=== PATIENT | male | born 1945 | race Caucasian/White ===

== ENCOUNTER 2017-12-03 08:28 | Observation (INO) | payer MEDICARE, SELFPAY ==
[~2017-12-03] VITALS: Ht 182.9 cm; Wt 108.0 kg
[~2017-12-03 08:28] MED LIST: ACET500; AMLO5; AMLO5 PO; BETA.05TC TP; CALCIUM 600 +1 EA11 PO; Depo-Testos200 MG/ML IM; ESOM20; GLIM2 PO; HYDSUL200; HYDSUL200 PO; METF500 PO; METH5 PO; MISO200; NAPR500; NAPR500 PO; ONE DAILY COMP1 EACH PO; PRED5; PRED5 PO; PREDNISONE PO; PSYL5.85P PO; Prilosec Otc20 MG PO; SERT50; SERT50 PO; TESTOSTERONE; TRAM50; TRAZ100; TRAZ50 PO; VITAMIN C500 MG PO; [UNRECOGNIZED DRUG - OTHER]
[2017-12-03] MEDS ORDERED: FURO40 PO (08:59)
[2017-12-03 09:37] LABS: BASOPHILS ABSOLUTE AUTO 0.02 K/mm3 (0.00-0.23); BASOPHILS PERCENT AUTO 0 % (0-2); EOSINOPHILS ABSOLUTE AUTO 0.14 K/mm3 (0.00-0.68); EOSINOPHILS PERCENT AUTO 2 % (0-6); Hematocrit 30.5 % (37.0-53.0); Hemoglobin 9.3 g/dL (13.5-17.5); IMMATURE GRAN ABSOLUTE AUTO 0.02 K/mm3 (0.00-0.10); IMMATURE GRAN PERCENT AUTO 0 % (0-1); LYMPHOCYTES ABSOLUTE AUTO 1.05 K/mm3 (0.84-5.20); LYMPHOCYTES PERCENT AUTO 15 % (21-46); MONOCYTES ABSOLUTE AUTO 0.74 K/mm3 (0.16-1.47); MONOCYTES PERCENT AUTO 10 % (4-13); Mean Corpuscular HGB 25.2 pg (26.0-34.0); Mean Corpuscular HGB Conc 30.5 g/dL (31.5-36.5); Mean Corpuscular Volume 83 fL (80-100); Mean Platelet Volume 12.6 fL (9.1-12.4); NEUTROPHILS ABSOLUTE AUTO 5.27 K/mm3 (1.96-9.15); NEUTROPHILS PERCENT AUTO 73 % (41-73); Platelet Count 119 K/mm3 (150-400); RDW Coefficient Variation 14.3 % (11.7-14.2); RDW Standard Deviation 42.4 fL (35.1-46.3); Red Blood Cell Count 3.69 M/mm3 (4.30-5.90); White Blood Cell Count 7.24 K/mm3 (4.00-11.30)
[2017-12-03 10:10] LABS: Alanine Aminotransfer (ALT/SGP 30 U/L (12-78); Albumin, Blood 2.8 g/dL (3.4-5.0); Albumin/Globulin Ratio 0.6 (0.8-1.8); Alk Phos 101 U/L (50-136); Anion Gap 7 mmol/L (6-16); Aspartate Aminotrans (AST/SGOT 44 U/L (12-37); Bilirubin, Total 0.6 mg/dL (0.1-1.0); Blood Urea Nitrogen 31 mg/dL (8-24); Bun/Creatinine Ratio 31.2 (12.0-20.0); CO2, Blood 22 mmol/L (21-32); Calcium, Blood 8.2 mg/dL (8.5-10.1); Chloride, Blood 109 mmol/L (98-108); Creatinine, Blood 0.99 mg/dL (0.60-1.20); Globulin, Blood 4.7 g/dL (2.2-4.0); Glomerular Filtration Rate >60 (60-); Glucose, Blood 117 mg/dL (70-99); Potassium, Blood 4.6 mmol/L (3.5-5.5); Sodium, Blood 138 mmol/L (136-145); Total Protein, Blood 7.5 g/dL (6.4-8.2); Troponin I 0.213 ng/mL (0.000-0.040)
[2017-12-03 16:29] LABS: Creatine Kinase MB 4.2 ng/mL (0.0-3.6); Creatine Kinase MB Index 6.1 (0.0-4.0); Troponin I 0.262 ng/mL (0.000-0.040)
[2017-12-03 22:14] LABS: Creatine Kinase MB Index 4.9 (0.0-4.0); Troponin I 0.234 ng/mL (0.000-0.040)
[2017-12-04 06:16] LABS: BASOPHILS ABSOLUTE AUTO 0.04 K/mm3 (0.00-0.23); BASOPHILS PERCENT AUTO 1 % (0-2); EOSINOPHILS ABSOLUTE AUTO 0.13 K/mm3 (0.00-0.68); EOSINOPHILS PERCENT AUTO 2 % (0-6); Hematocrit 31.2 % (37.0-53.0); Hemoglobin 9.5 g/dL (13.5-17.5); IMMATURE GRAN ABSOLUTE AUTO 0.02 K/mm3 (0.00-0.10); IMMATURE GRAN PERCENT AUTO 0 % (0-1); LYMPHOCYTES PERCENT AUTO 24 % (21-46); MONOCYTES ABSOLUTE AUTO 0.69 K/mm3 (0.16-1.47); MONOCYTES PERCENT AUTO 11 % (4-13); Mean Corpuscular HGB 24.9 pg (26.0-34.0); Mean Corpuscular HGB Conc 30.4 g/dL (31.5-36.5); Mean Corpuscular Volume 82 fL (80-100); Mean Platelet Volume 12.4 fL (9.1-12.4); NEUTROPHILS ABSOLUTE AUTO 4.12 K/mm3 (1.96-9.15); NEUTROPHILS PERCENT AUTO 62 % (41-73); Platelet Count 125 K/mm3 (150-400); RDW Coefficient Variation 14.4 % (11.7-14.2); RDW Standard Deviation 42.3 fL (35.1-46.3); Red Blood Cell Count 3.82 M/mm3 (4.30-5.90)
[2017-12-04 06:30] LABS: Alanine Aminotransfer (ALT/SGP 27 U/L (12-78); Albumin, Blood 2.8 g/dL (3.4-5.0); Albumin/Globulin Ratio 0.6 (0.8-1.8); Alk Phos 98 U/L (50-136); Anion Gap 10 mmol/L (6-16); Aspartate Aminotrans (AST/SGOT 43 U/L (12-37); Bilirubin, Total 0.9 mg/dL (0.1-1.0); Blood Urea Nitrogen 28 mg/dL (8-24); Bun/Creatinine Ratio 27.2 (12.0-20.0); CO2, Blood 26 mmol/L (21-32); Calcium, Blood 8.2 mg/dL (8.5-10.1); Chloride, Blood 104 mmol/L (98-108); Creatinine, Blood 1.03 mg/dL (0.60-1.20); Globulin, Blood 4.7 g/dL (2.2-4.0); Glomerular Filtration Rate >60 (60-); Glucose, Blood 121 mg/dL (70-99); Magnesium, Blood 1.9 mg/dL (1.6-2.4); Phosphorus, Blood 3.4 mg/dL (2.5-4.9); Potassium, Blood 4.2 mmol/L (3.5-5.5); Sodium, Blood 140 mmol/L (136-145); Total Protein, Blood 7.5 g/dL (6.4-8.2)
[2017-12-04] MEDS ORDERED: FURO40 PO (10:56)
[2017-12-04] MEDS ORDERED: METH5 PO (10:58)
[2017-12-04] MEDS ORDERED: Micro-K10 MEQ PO (11:01)
[2018-01-07] MEDS ORDERED: ACET500 PO (14:46)
[2018-01-07] MEDS ORDERED: ACYC800 PO (14:46)
[2018-01-07] MEDS ORDERED: BETA.05TCA TOP (14:48)
[2018-01-07] MEDS ORDERED: MONT10T PO (14:49)
[2018-01-07] MEDS ORDERED: Alavert D-12 A1 EACH PO (14:49)
[2018-01-07] MEDS ORDERED: METO50ER PO (14:49)
[2018-01-07] MEDS ORDERED: SPIR25 PO (14:50)
== END 2017-12-04 13:57 | disposition home or self-care (01) ==
LOC: ER 08:28 → MEDS 08:29 → ENPENDDIS 12-04 10:00 → MEDS 12-04 13:57
PROVIDERS: Emergency Medicine; Hospitalist
DX: R07.89 Other chest pain (principal); I11.0 Hypertensive heart disease with heart failure; I50.9 Heart failure, unspecified; E11.40 Type 2 diabetes mellitus with diabetic neuropathy, unspecified; C22.8 Malignant neoplasm of liver, primary, unspecified as to type; J18.9 Pneumonia, unspecified organism; I24.9 Acute ischemic heart disease, unspecified; K21.9 Gastro-esophageal reflux disease without esophagitis; Z88.0 Allergy status to penicillin; Z88.8 Allergy status to other drugs, medicaments and biological substances; Z79.899 Other long term (current) drug therapy; Z79.84 Long term (current) use of oral hypoglycemic drugs; Z98.890 Other specified postprocedural states
CPT/HCPCS: 36415; 71046; 71260; 74177; 80053; 82550; 82553; 82947; 83735; 83880; 84100; 84484; 85025; 85651; 86140; 93005; 93010; 96374; 99285; C8929; G0378; J3010; Q9957; Q9967

== ENCOUNTER → 2018-02-04 | Outpatient (CLI) | payer MEDICARE, SELFPAY ==
[~2018-02-04] MED LIST changes: +ACET500 PO; +ACYC800 PO; +Alavert D-12 A1 EACH PO; +BETA.05TCA TOP; +FURO40 PO; +METO50ER PO; +MONT10T PO; +Micro-K10 MEQ PO; +SPIR25 PO
== END | disposition home or self-care (01) ==
LOC: LAB SHORT 15:14 → LAB 15:14
DX: M86.171 Other acute osteomyelitis, right ankle and foot (principal)
CPT/HCPCS: 87070; 87075; 87147; 87205

== ENCOUNTER → 2018-02-23 | Outpatient (CLI) | payer MEDICARE, SELFPAY ==
[2018-02-23 14:28] LABS: Protein, Urine Quantitative 5.5 mg/dL (0.0-11.9)
== END | disposition home or self-care (01) ==
LOC: LAB 12:12
PROVIDERS: Internal Medicine Nephrology
DX: R79.89 Other specified abnormal findings of blood chemistry (principal)
CPT/HCPCS: 84156

== ENCOUNTER 2018-09-27 15:42 | Emergency (ER) | payer MEDICARE, SELFPAY ==
[~2018-09-27] VITALS: Ht 182.9 cm; Wt 107.0 kg
[~2018-09-27 15:42] MED LIST changes: -SPIR25 PO
[2018-09-27 16:41] LABS: BASOPHILS ABSOLUTE AUTO 0.03 K/mm3 (0.00-0.23); BASOPHILS PERCENT AUTO 1 % (0-2); EOSINOPHILS ABSOLUTE AUTO 0.06 K/mm3 (0.00-0.68); EOSINOPHILS PERCENT AUTO 2 % (0-6); Hematocrit 30.8 % (37.0-53.0); Hemoglobin 9.2 g/dL (13.5-17.5); IMMATURE GRAN PERCENT AUTO 0 % (0-1); LYMPHOCYTES ABSOLUTE AUTO 1.31 K/mm3 (0.84-5.20); LYMPHOCYTES PERCENT AUTO 32 % (21-46); MONOCYTES ABSOLUTE AUTO 0.35 K/mm3 (0.16-1.47); MONOCYTES PERCENT AUTO 9 % (4-13); Mean Corpuscular HGB 23.2 pg (26.0-34.0); Mean Corpuscular HGB Conc 29.9 g/dL (31.5-36.5); Mean Corpuscular Volume 78 fL (80-100); NEUTROPHILS ABSOLUTE AUTO 2.38 K/mm3 (1.96-9.15); NEUTROPHILS PERCENT AUTO 58 % (41-73); Platelet Count 74 K/mm3 (150-400); RDW Coefficient Variation 17.2 % (11.7-14.2); RDW Standard Deviation 49.1 fL (35.1-46.3); Red Blood Cell Count 3.96 M/mm3 (4.30-5.90); White Blood Cell Count 4.13 K/mm3 (4.00-11.30)
[2018-09-27 17:05] LABS: Alanine Aminotransfer (ALT/SGP 35 U/L (12-78); Albumin, Blood 3.1 g/dL (3.4-5.0); Albumin/Globulin Ratio 0.7 (0.8-1.8); Alk Phos 94 U/L (50-136); Anion Gap 7 mmol/L (6-16); Aspartate Aminotrans (AST/SGOT 46 U/L (12-37); Bilirubin, Total 0.8 mg/dL (0.1-1.0); Blood Urea Nitrogen 20 mg/dL (8-24); Bun/Creatinine Ratio 23.7 (12.0-20.0); CO2, Blood 25 mmol/L (21-32); Calcium, Blood 8.3 mg/dL (8.5-10.1); Chloride, Blood 105 mmol/L (98-108); Creatinine, Blood 0.84 mg/dL (0.60-1.20); Globulin, Blood 4.4 g/dL (2.2-4.0); Glomerular Filtration Rate >60 (60-); Glucose, Blood 185 mg/dL (70-99); Potassium, Blood 4.1 mmol/L (3.5-5.5); Sodium, Blood 137 mmol/L (136-145); Total Protein, Blood 7.5 g/dL (6.4-8.2); Troponin I 0.019 ng/mL (0.000-0.040)
[2018-09-27] MEDS ORDERED: LACT10SY PO (18:52)
[2018-09-27] MEDS ORDERED: TRAZ50 PO (18:53)
[2018-09-27] MEDS ORDERED: Nitrostat0.4 MG SL (19:47)
== END 2018-09-27 20:06 | disposition left against medical advice (07) ==
LOC: ER 15:42
PROVIDERS: Physician Assistant
DX: R07.9 Chest pain, unspecified (principal); Z88.0 Allergy status to penicillin; Z88.8 Allergy status to other drugs, medicaments and biological substances; Z88.1 Allergy status to other antibiotic agents; Z79.899 Other long term (current) drug therapy; Z79.891 Long term (current) use of opiate analgesic; E11.40 Type 2 diabetes mellitus with diabetic neuropathy, unspecified; I11.0 Hypertensive heart disease with heart failure; I50.9 Heart failure, unspecified; K21.9 Gastro-esophageal reflux disease without esophagitis; Z87.891 Personal history of nicotine dependence
CPT/HCPCS: 36415; 71046; 80053; 84484; 85025; 93005; 93010; 99285-25

== ENCOUNTER 2018-11-20 15:27 | Emergency (ER) | payer MEDICARE, OTHER ==
[~2018-11-20] VITALS: Ht 182.9 cm; Wt 108.0 kg
[~2018-11-20 15:27] MED LIST changes: +LACT10SY PO; +Nitrostat0.4 MG SL
[2018-11-20 16:34] LABS: BASOPHILS ABSOLUTE AUTO 0.04 K/mm3 (0.00-0.23); BASOPHILS PERCENT AUTO 1 % (0-2); EOSINOPHILS ABSOLUTE AUTO 0.08 K/mm3 (0.00-0.68); EOSINOPHILS PERCENT AUTO 2 % (0-6); Hematocrit 31.5 % (37.0-53.0); Hemoglobin 8.9 g/dL (13.5-17.5); IMMATURE GRAN ABSOLUTE AUTO 0.02 K/mm3 (0.00-0.10); IMMATURE GRAN PERCENT AUTO 0 % (0-1); LYMPHOCYTES ABSOLUTE AUTO 1.75 K/mm3 (0.84-5.20); LYMPHOCYTES PERCENT AUTO 35 % (21-46); MONOCYTES ABSOLUTE AUTO 0.45 K/mm3 (0.16-1.47); MONOCYTES PERCENT AUTO 9 % (4-13); Mean Corpuscular HGB 23.7 pg (26.0-34.0); Mean Corpuscular HGB Conc 28.3 g/dL (31.5-36.5); Mean Corpuscular Volume 84 fL (80-100); NEUTROPHILS ABSOLUTE AUTO 2.65 K/mm3 (1.96-9.15); NEUTROPHILS PERCENT AUTO 53 % (41-73); Platelet Count 99 K/mm3 (150-400); RDW Coefficient Variation 19.1 % (11.7-14.2); RDW Standard Deviation 57.1 fL (35.1-46.3); Red Blood Cell Count 3.75 M/mm3 (4.30-5.90); White Blood Cell Count 4.99 K/mm3 (4.00-11.30)
[2018-11-20 16:48] LABS: Alanine Aminotransfer (ALT/SGP 40 U/L (12-78); Albumin/Globulin Ratio 0.7 (0.8-1.8); Alk Phos 86 U/L (50-136); Anion Gap 11 mmol/L (6-16); Aspartate Aminotrans (AST/SGOT 57 U/L (12-37); Bilirubin, Total 1.2 mg/dL (0.1-1.0); Blood Urea Nitrogen 25 mg/dL (8-24); Bun/Creatinine Ratio 26.1 (12.0-20.0); CO2, Blood 20 mmol/L (21-32); Calcium, Blood 8.4 mg/dL (8.5-10.1); Chloride, Blood 110 mmol/L (98-108); Creatinine, Blood 0.96 mg/dL (0.60-1.20); Globulin, Blood 4.2 g/dL (2.2-4.0); Glomerular Filtration Rate >60 (60-); Glucose, Blood 176 mg/dL (70-99); Potassium, Blood 4.4 mmol/L (3.5-5.5); Sodium, Blood 141 mmol/L (136-145); Total Protein, Blood 7.2 g/dL (6.4-8.2)
[2018-11-20] MEDS ORDERED: Metformin HCl500 MG PO (16:57)
[2018-11-20] MEDS ORDERED: EPLE25 (16:59)
[2018-11-20 17:04] LABS: International Normalized Ratio 1.16; Prothrombin Time Results 12.1 Sec (9.7-11.5)
[2018-11-20 17:15] LABS: Troponin I 0.578 ng/mL (0.000-0.040)
[2018-11-20] MEDS ORDERED: FURO80 PO (18:19)
[2018-11-20] MEDS ORDERED: OXYC10TA19 (18:24)
[2018-11-20] MEDS ORDERED: **INCOMPLETE MED REC (18:25)
[2018-11-20] MEDS ORDERED: ROSU5 PO (18:37)
[2018-11-20] MEDS ORDERED: SPIR25 PO (18:38)
[2018-11-20] MEDS ORDERED: METO2.5 PO (18:46)
[2018-11-20] MEDS ORDERED: AZIT250 PO (18:55)
[2018-11-20] MEDS ORDERED: Efudex40 GM TOP (18:56)
[2018-11-20] MEDS ORDERED: Toprol Xl25 MG PO (19:12)
[2018-11-20] MEDS ORDERED: Isosorbide Mono30 MG PO (19:12)
== END 2018-11-20 19:52 | disposition home or self-care (01) ==
LOC: ER 15:27
PROVIDERS: Emergency Medicine
DX: I21.4 Non-ST elevation (NSTEMI) myocardial infarction (principal); R06.00 Dyspnea, unspecified; R18.8 Other ascites; J90 Pleural effusion, not elsewhere classified; Z88.0 Allergy status to penicillin; Z88.8 Allergy status to other drugs, medicaments and biological substances; Z88.1 Allergy status to other antibiotic agents; Z79.899 Other long term (current) drug therapy; Z79.84 Long term (current) use of oral hypoglycemic drugs; I11.0 Hypertensive heart disease with heart failure; I50.9 Heart failure, unspecified; K21.9 Gastro-esophageal reflux disease without esophagitis; Z87.891 Personal history of nicotine dependence
CPT/HCPCS: 36415; 71046; 76705; 80053; 83880; 84484; 85025; 85610; 93005; 93010; 99285-25

== ENCOUNTER 2018-12-06 15:08 | Inpatient (IN) | payer MEDICARE, OTHER ==
[~2018-12-06] VITALS: Ht 182.9 cm; Wt 101.1 kg
[~2018-12-06 15:08] MED LIST changes: +**INCOMPLETE MED REC; +AZIT250 PO; +EPLE25; +Efudex40 GM TOP; +FURO80 PO; +Isosorbide Mono30 MG PO; +METO2.5 PO; +Metformin HCl500 MG PO; +OXYC10TA19; +ROSU5 PO; +SPIR25 PO; +Toprol Xl25 MG PO
[2018-12-06 17:15] LABS: BASOPHILS ABSOLUTE AUTO 0.06 K/mm3 (0.00-0.23); BASOPHILS PERCENT AUTO 1 % (0-2); EOSINOPHILS ABSOLUTE AUTO 0.16 K/mm3 (0.00-0.68); EOSINOPHILS PERCENT AUTO 3 % (0-6); Hemoglobin 8.3 g/dL (13.5-17.5); IMMATURE GRAN ABSOLUTE AUTO 0.01 K/mm3 (0.00-0.10); IMMATURE GRAN PERCENT AUTO 0 % (0-1); LYMPHOCYTES ABSOLUTE AUTO 1.75 K/mm3 (0.84-5.20); LYMPHOCYTES PERCENT AUTO 27 % (21-46); MONOCYTES ABSOLUTE AUTO 0.76 K/mm3 (0.16-1.47); MONOCYTES PERCENT AUTO 12 % (4-13); Mean Corpuscular HGB 23.4 pg (26.0-34.0); Mean Corpuscular HGB Conc 29.6 g/dL (31.5-36.5); Mean Corpuscular Volume 79 fL (80-100); NEUTROPHILS ABSOLUTE AUTO 3.79 K/mm3 (1.96-9.15); NEUTROPHILS PERCENT AUTO 58 % (41-73); Platelet Count 89 K/mm3 (150-400); RDW Coefficient Variation 18.6 % (11.7-14.2); RDW Standard Deviation 52.3 fL (35.1-46.3); Red Blood Cell Count 3.55 M/mm3 (4.30-5.90); White Blood Cell Count 6.53 K/mm3 (4.00-11.30)
[2018-12-06 17:30] LABS: Albumin, Blood 3.2 g/dL (3.4-5.0); Albumin/Globulin Ratio 0.7 (0.8-1.8); Bilirubin, Total 1.3 mg/dL (0.1-1.0); Bun/Creatinine Ratio 39.4 (12.0-20.0); Calcium, Blood 8.5 mg/dL (8.5-10.1); Creatinine, Blood 1.88 mg/dL (0.60-1.20); Globulin, Blood 4.3 g/dL (2.2-4.0); Potassium, Blood 4.8 mmol/L (3.5-5.5); Total Protein, Blood 7.5 g/dL (6.4-8.2)
[2018-12-06] MEDS ORDERED: ACET500 PO (20:16)
[2018-12-06] MEDS ORDERED: LACT10SY PO (20:17)
[2018-12-06] MEDS ORDERED: TRAZ50 PO (20:18)
[2018-12-06] MEDS ORDERED: EPLE25 PO (21:37)
[2018-12-06] MEDS ORDERED: BUME2 PO (21:37)
[2018-12-06] MEDS ORDERED: METO2.5 PO (21:38)
[2018-12-06] MEDS ORDERED: Midodrine HCl2.5 MG PO (21:38)
[2018-12-07 05:42] LABS: BASOPHILS ABSOLUTE AUTO 0.04 K/mm3 (0.00-0.23); BASOPHILS PERCENT AUTO 1 % (0-2); EOSINOPHILS ABSOLUTE AUTO 0.27 K/mm3 (0.00-0.68); EOSINOPHILS PERCENT AUTO 4 % (0-6); Hematocrit 27.3 % (37.0-53.0); Hemoglobin 8.1 g/dL (13.5-17.5); IMMATURE GRAN ABSOLUTE AUTO 0.01 K/mm3 (0.00-0.10); IMMATURE GRAN PERCENT AUTO 0 % (0-1); LYMPHOCYTES ABSOLUTE AUTO 2.59 K/mm3 (0.84-5.20); LYMPHOCYTES PERCENT AUTO 34 % (21-46); MONOCYTES ABSOLUTE AUTO 0.81 K/mm3 (0.16-1.47); MONOCYTES PERCENT AUTO 11 % (4-13); Mean Corpuscular HGB 22.8 pg (26.0-34.0); Mean Corpuscular HGB Conc 29.7 g/dL (31.5-36.5); Mean Corpuscular Volume 77 fL (80-100); NEUTROPHILS ABSOLUTE AUTO 3.86 K/mm3 (1.96-9.15); NEUTROPHILS PERCENT AUTO 51 % (41-73); Platelet Count 94 K/mm3 (150-400); RDW Coefficient Variation 18.6 % (11.7-14.2); RDW Standard Deviation 51.4 fL (35.1-46.3); Red Blood Cell Count 3.55 M/mm3 (4.30-5.90); White Blood Cell Count 7.58 K/mm3 (4.00-11.30)
[2018-12-07 06:28] LABS: Albumin, Blood 3.2 g/dL (3.4-5.0); Anion Gap 11 mmol/L (6-16); Blood Urea Nitrogen 72 mg/dL (8-24); Bun/Creatinine Ratio 37.9 (12.0-20.0); CO2, Blood 19 mmol/L (21-32); Calcium, Blood 8.4 mg/dL (8.5-10.1); Chloride, Blood 109 mmol/L (98-108); Glomerular Filtration Rate 37 (60-); Glucose, Blood 130 mg/dL (70-99); Magnesium, Blood 2.6 mg/dL (1.6-2.4); Phosphorus, Blood 4.9 mg/dL (2.5-4.9); Sodium, Blood 139 mmol/L (136-145)
[2018-12-07 07:14] LABS: PCO2 Arterial 32.3 mmHg (35-45); PO2 Arterial 60.2 mmHg (80-100); pH Blood Arterial 7.41 (7.35-7.45)
--- NOTE | 2018-12-07 12:30 | NUR ---
ADVISED PATIENT REFUSED HEPARIN IN E.R. AND SOON TO BE ON FLOOR. STS CAUSES BLEEDING W/HIS LIVER.
--- NOTE | 2018-12-07 16:10 | NUR ---
ALERT AND ORIENTED. ARRIVES TO FLOOR AROUND 1300. IN TO SEE PATIENT SHORTLY AFTER ARRIVAL. EDEMA BLE W/WEEPING. SERENE HOSE AND SCD'S PLACED WITH 2 PILLOWS UNDER LEGS. AWARE NEEDS TO CALL US IF HE NEEDS TO GET UP. TELE ON AND PER TECH SR AT 87. IV PATENT. AWARE ON FLUID RESTRICTIONS. BED IN LOW POSITION. CALL LIGHT WITHIN REACH. WILL CONTINUE TO MONITOR.
--- NOTE | 2018-12-08 01:52 | NUR ---
APPROX 0200 NOTIFIED BY PCU WIRE MESH FILTER FABRICATOR THAT PATIENT HAD A 7 BEAT RUN OF VTACH. UPON ASSESSMENT PATIENT APPEARS TO BE SLEEPING SOUNDINGLY WITH NO ACUTE CHANGES NOTED AT THAT TIME. HR WNL; CHECKED APICALLY.
[2018-12-08 04:59] LABS: BASOPHILS ABSOLUTE AUTO 0.04 K/mm3 (0.00-0.23); BASOPHILS PERCENT AUTO 1 % (0-2); EOSINOPHILS ABSOLUTE AUTO 0.22 K/mm3 (0.00-0.68); EOSINOPHILS PERCENT AUTO 5 % (0-6); Hematocrit 26.2 % (37.0-53.0); Hemoglobin 7.8 g/dL (13.5-17.5); IMMATURE GRAN ABSOLUTE AUTO 0.01 K/mm3 (0.00-0.10); IMMATURE GRAN PERCENT AUTO 0 % (0-1); LYMPHOCYTES ABSOLUTE AUTO 1.63 K/mm3 (0.84-5.20); LYMPHOCYTES PERCENT AUTO 34 % (21-46); MONOCYTES ABSOLUTE AUTO 0.52 K/mm3 (0.16-1.47); MONOCYTES PERCENT AUTO 11 % (4-13); Mean Corpuscular HGB 23.7 pg (26.0-34.0); Mean Corpuscular HGB Conc 29.8 g/dL (31.5-36.5); NEUTROPHILS ABSOLUTE AUTO 2.42 K/mm3 (1.96-9.15); NEUTROPHILS PERCENT AUTO 50 % (41-73); Platelet Count 75 K/mm3 (150-400); RDW Coefficient Variation 18.8 % (11.7-14.2); RDW Standard Deviation 53.1 fL (35.1-46.3); Red Blood Cell Count 3.29 M/mm3 (4.30-5.90); White Blood Cell Count 4.84 K/mm3 (4.00-11.30)
[2018-12-08 05:05] LABS: Mean Corpuscular Volume 80 fL (80-100)
--- NOTE | 2018-12-08 05:10 | NUR ---
SHIFT SUMMARY A/O, ABLE TO MAKE NEEDS KNOWN. COOPERATIVE WITH CARE. ANSWERS QUESTIONS APPROPRIATELY. C/O PAIN/DISCOMFORT; RATED 7/10; MEDICATED PER EMAR. REMAINS EDEMATOUS TO BLE; SERENE HOSE ON T/O SHIFT WITH SCD's RUNNING. APPEARED TO REST A FEW HOURS AT A TIME. UP WITH FWW TO BATHROOM; STEADY SLOW GAIT NOTED. VSS/AFEBRILE. NO ACUTE CHANGES OVERNIGHT. BED IN LOWEST POSITION. WCTM. CALL LIGHT AND BELONGINGS WITHIN REACH. REPORT TO ONCOMING RN.
[2018-12-08 05:23] LABS: Alanine Aminotransfer (ALT/SGP 56 U/L (12-78); Albumin/Globulin Ratio 0.7 (0.8-1.8); Alk Phos 68 U/L (50-136); Anion Gap 10 mmol/L (6-16); Aspartate Aminotrans (AST/SGOT 58 U/L (12-37); Bilirubin, Total 1.3 mg/dL (0.1-1.0); Blood Urea Nitrogen 76 mg/dL (8-24); CO2, Blood 20 mmol/L (21-32); CPK Creatine Kinase 120 U/L (39-308); Calcium, Blood 8.4 mg/dL (8.5-10.1); Chloride, Blood 109 mmol/L (98-108); Globulin, Blood 4.2 g/dL (2.2-4.0); Glomerular Filtration Rate 37 (60-); Glucose, Blood 122 mg/dL (70-99); Magnesium, Blood 2.5 mg/dL (1.6-2.4); Phosphorus, Blood 5.1 mg/dL (2.5-4.9); Potassium, Blood 3.8 mmol/L (3.5-5.5); Sodium, Blood 139 mmol/L (136-145); Total Protein, Blood 7.2 g/dL (6.4-8.2); Uric Acid, Blood 14.7 mg/dL (3.5-7.2)
--- NOTE | 2018-12-08 18:19 | NUR ---
ALERT AND ORIENTED. SECOND IV PLACED W/GOOD BLOOD RETURN. PER PATIENT TO COME IN AND ORDER IRON INFUSION.TELE ON AND PER TECH SR, 1ST DEGREE W/PVC'S AT 90. COOPERATIVE. PLEASANT. ABLE TO MAKE NEEDS KNOWN. UNLABORED RESPIRATIONS. SWELLING TO BLE WAS DECREASED THIS AM. SERENE HOSE OFF FOR FEW HOURS THEN REPLACED AND PATIENT ADVISED CAN COME OFF WHEN HE GOES TO BED. BED IN LOW POSITION. CALL LIGHT WITHIN REACH. WILL CONTINUE TO MONITOR.
[2018-12-08 22:24] LABS: Percent Saturation 4.7 % (20.0-50.0)
--- NOTE | 2018-12-09 01:49 | NUR ---
PHYSICIAN CORRESPONDENCE APPROXIMATELY 2330 REPORTED IRON DEFICIENCY PANEL AND BLADDER SCAN RESULTS TO DR. STRICKLAND REQUESTED. NEW ORDERS PLACED; WILL START IN AM ON 12/09/18
--- NOTE | 2018-12-09 04:43 | NUR ---
SHIFT SUMMARY A/O, ABLE TO MAKE NEEDS KNOWN. COOPERATIVE WITH CARE. ANSWERS QUESTIONS APPROPRIATELY. C/O PAIN/DISCOMFORT; MEDICATED PER EMAR DURING EVENING MED PASS. APPEARED TO REST MUCH OF SHIFT. STRICKLAND IN TO VISIT WITH PATIENT AND HIS . PLACED ORDER FOR FERRLECIT IV INFUSION R/T LOW IRON LEVELS. ALSO D/C'd SCD's; HOWEVER SERENE CABA REMAIN INPLACE. NO ACUTE CHANGES OVERNIGHT. VSS/AFEBIRLE. UP WITH SBA AND FWW TO BATHROOM; STEADY GAIT. BED IN LOWEST POSITION. CALL LIGHT AND BELONGINGS WITHIN REACH. WCTM. REPORT TO ONCOMING RN.
[2018-12-09 05:36] LABS: BASOPHILS ABSOLUTE AUTO 0.04 K/mm3 (0.00-0.23); BASOPHILS PERCENT AUTO 1 % (0-2); EOSINOPHILS PERCENT AUTO 4 % (0-6); Hematocrit 25.1 % (37.0-53.0); Hemoglobin 7.6 g/dL (13.5-17.5); IMMATURE GRAN ABSOLUTE AUTO 0.01 K/mm3 (0.00-0.10); IMMATURE GRAN PERCENT AUTO 0 % (0-1); LYMPHOCYTES ABSOLUTE AUTO 1.67 K/mm3 (0.84-5.20); LYMPHOCYTES PERCENT AUTO 34 % (21-46); MONOCYTES PERCENT AUTO 10 % (4-13); Mean Corpuscular HGB 23.3 pg (26.0-34.0); Mean Corpuscular HGB Conc 30.3 g/dL (31.5-36.5); NEUTROPHILS ABSOLUTE AUTO 2.43 K/mm3 (1.96-9.15); NEUTROPHILS PERCENT AUTO 50 % (41-73); Platelet Count 67 K/mm3 (150-400); RDW Coefficient Variation 18.3 % (11.7-14.2); Red Blood Cell Count 3.26 M/mm3 (4.30-5.90); White Blood Cell Count 4.85 K/mm3 (4.00-11.30)
[2018-12-09 05:46] LABS: Mean Corpuscular Volume 77 fL (80-100)
[2018-12-09 05:55] LABS: Alanine Aminotransfer (ALT/SGP 50 U/L (12-78); Albumin, Blood 2.8 g/dL (3.4-5.0); Albumin/Globulin Ratio 0.7 (0.8-1.8); Alk Phos 61 U/L (50-136); Anion Gap 9 mmol/L (6-16); Aspartate Aminotrans (AST/SGOT 47 U/L (12-37); Bilirubin, Total 1.3 mg/dL (0.1-1.0); Blood Urea Nitrogen 75 mg/dL (8-24); Bun/Creatinine Ratio 44.4 (12.0-20.0); CO2, Blood 25 mmol/L (21-32); Calcium, Blood 8.1 mg/dL (8.5-10.1); Chloride, Blood 107 mmol/L (98-108); Creatinine, Blood 1.69 mg/dL (0.60-1.20); Globulin, Blood 3.9 g/dL (2.2-4.0); Glomerular Filtration Rate 43 (60-); Glucose, Blood 111 mg/dL (70-99); Magnesium, Blood 2.2 mg/dL (1.6-2.4); Phosphorus, Blood 5.2 mg/dL (2.5-4.9); Potassium, Blood 2.9 mmol/L (3.5-5.5); Sodium, Blood 141 mmol/L (136-145); Total Protein, Blood 6.7 g/dL (6.4-8.2)
[2018-12-09 05:56] LABS: International Normalized Ratio 1.27; Prothrombin Time Results 13.2 Sec (9.7-11.5)
--- NOTE | 2018-12-09 08:07 | NUR ---
DR STRICKLAND AT BEDSIDE, NEW ORDERS FOR 1 UNIT PRBC, WITH BUMEX 2MG IV MIDWAY, POTASSIUM LAB STAT AT 1700 AND CALL TO NOTIFY BY 1800. WILL CONTINUE TO MONITOR
--- NOTE | 2018-12-09 17:21 | NUR ---
NOTIFIED DR STRICKLAND OF POTASSIUM RESULTS, NEW ORDERS FOR POTASSIUM CHLORIDE 20MEQ PO X1. WILL CONTINUE TO MONITOR.
--- NOTE | 2018-12-09 17:27 | NUR ---
SHIFT SUMMARY PT A&OX4. CALM AND COOPERATIVE WITH CARE. PT RESTING IN BED DURING SHIFT, UP AT SIDE OF BED FOR MEALS. EDEMA TO BLE, PT ENCOURAGED TO ELEVATE. PT REPORTS GENERALIZED PAIN AND HEADACHE, MEDICATED X2 WITH TYLENOL AND OXYCODONE WITH POSITIVE RESULTS. PT SOB WITH EXERTION, >92% ON 2L O2 VIA NC, LS DIM IN BASES AFTER TRANSFUSION. PT RECEIVED 1 UNIT OF PRBC, TOLERATED IT WELL. PT RECEIVING IV BUMEX, EXTRA DOSE DURING TRANSFUSION. RECEIVING IV IRON AND PO POTASSIUM. VSS. NO OTHER ACUTE CHANGES NOTED DURING SHIFT. WILL CONTINUE TO MONITOR UNTIL REPORT GIVEN TO ONCOMING RN.
--- NOTE | 2018-12-10 04:35 | NUR ---
SHIFT SUMMARY: PT IS ALERT AND ORIENTED. PT IS CALM AND COOPERATIVE WITH CARE. PT CALLS APPROPRIATELY. PT IS A STANDBY ASSIST. PT DENIES PAIN, NAUSEA, VOMITING, AND SOB. PT SLEPT MUCH OF THE NIGHT WHEN NOT DISTURBED. NO ACUTE CHANGES OR COMPLICATIONS THIS SHIFT. BED IN LOW POSITION, CALL LIGHT WTIHIN REACH. WILL REPORT TO DAY NURSE.
[2018-12-10 05:59] LABS: BASOPHILS ABSOLUTE AUTO 0.05 K/mm3 (0.00-0.23); BASOPHILS PERCENT AUTO 1 % (0-2); EOSINOPHILS ABSOLUTE AUTO 0.28 K/mm3 (0.00-0.68); EOSINOPHILS PERCENT AUTO 6 % (0-6); Hematocrit 30.9 % (37.0-53.0); Hemoglobin 9.3 g/dL (13.5-17.5); IMMATURE GRAN ABSOLUTE AUTO 0.01 K/mm3 (0.00-0.10); IMMATURE GRAN PERCENT AUTO 0 % (0-1); LYMPHOCYTES ABSOLUTE AUTO 1.65 K/mm3 (0.84-5.20); LYMPHOCYTES PERCENT AUTO 33 % (21-46); MONOCYTES ABSOLUTE AUTO 0.53 K/mm3 (0.16-1.47); MONOCYTES PERCENT AUTO 11 % (4-13); Mean Corpuscular HGB 23.4 pg (26.0-34.0); Mean Corpuscular HGB Conc 30.1 g/dL (31.5-36.5); Mean Corpuscular Volume 78 fL (80-100); NEUTROPHILS ABSOLUTE AUTO 2.48 K/mm3 (1.96-9.15); NEUTROPHILS PERCENT AUTO 50 % (41-73); Platelet Count 71 K/mm3 (150-400); RDW Coefficient Variation 18.1 % (11.7-14.2); RDW Standard Deviation 49.9 fL (35.1-46.3); Red Blood Cell Count 3.98 M/mm3 (4.30-5.90)
[2018-12-10 06:17] LABS: Albumin, Blood 3.1 g/dL (3.4-5.0); Anion Gap 10 mmol/L (6-16); Blood Urea Nitrogen 71 mg/dL (8-24); Bun/Creatinine Ratio 45.8 (12.0-20.0); CO2, Blood 25 mmol/L (21-32); Calcium, Blood 8.6 mg/dL (8.5-10.1); Chloride, Blood 107 mmol/L (98-108); Creatinine, Blood 1.55 mg/dL (0.60-1.20); Glomerular Filtration Rate 47 (60-); Glucose, Blood 105 mg/dL (70-99); Magnesium, Blood 2.1 mg/dL (1.6-2.4); Phosphorus, Blood 4.8 mg/dL (2.5-4.9); Sodium, Blood 142 mmol/L (136-145)
--- NOTE | 2018-12-10 08:18 | NUR ---
DR STRICKLAND AT BEDSIDE, NEW ORDERS ENTERED PER VERBAL ORDER, WILL CONTINUE TO MONITOR
--- NOTE | 2018-12-10 08:47 | NUR ---
PT REPORTS DULL CHEST PAIN, 04/09, THAT HAS BEEN GOING ON SINCE APPROXIMENTLY 0300 THIS AM. VS BP 91/54, HR 76, RR 16 O2 SAT 100% ON 1.5L O2, AND TEMP 98.1. NOTIFIED DR WOOD, NEW ORDER FOR STAT EKG. WILL CONTINUE TO MONITOR.
[2018-12-10 16:08] LABS: ALBUMIN 3.1 g/dL (2.9-4.4); ALPHA-1-GLOBULIN 0.2 g/dL (0.0-0.4); ALPHA-2-GLOBULIN 0.5 g/dL (0.4-1.0); BETA GLOBULIN 0.8 g/dL (0.7-1.3); GAMMA GLOBULIN 1.8 g/dL (0.4-1.8); GLOBULIN, TOTAL 3.4 g/dL (2.2-3.9); IMMUNOGLOBULIN A, QN, SERUM 289 mg/dL (61-437); IMMUNOGLOBULIN G, QN, SERUM 1353 mg/dL (700-1600); IMMUNOGLOBULIN M, QN, SERUM 675 mg/dL (15-143); M-SPIKE Not Observed g/dL (Not Observed); PROTEIN, TOTAL, SERUM 6.5 g/dL (6.0-8.5)
--- NOTE | 2018-12-10 19:25 | NUR ---
SHIFT SUMMARY PT A&OX4. CALM AND COOPERATIVE WITH CARE. PT UP IN RECLINER CHAIR FOR MAJORITY OF SHIFT, ENCOURAGED TO ELEVATE FEET. PT REPORTS GENERALIZED PAIN AND CHEST PAIN, MD AWARE, MEDICATED PER EMAR. PT SOB WITH EXERTION, ON 2L O2 VIA NC, TAKES ON AND OFF AT TIMES. PT DENIES N/V AND HAS GOOD APPETEITE. PT RECEIVING IV AND PO DIURETICS PER ORDERS. PT RECEIVED SECOND DOSE OF IV IRON DURING SHIFT. PT RECEIVING MIDRINE FOR BP. HYPOTENSIVE THIS AM, MEDICATED PER EMAR. OTHER VSS. SERENE HOSE NOT REMOVED THE PREVIOUS NOC, REMOVED DURING BED BATH. NO OTHER ACUTE CHANGES NOTED DURING SHIFT. REPORT GIVEN TO ONCOMING RN.
--- NOTE | 2018-12-10 22:58 | NUR ---
POTASSIUM DR. STRICKLAND CALLED AND NOTIFIED OF POTASSIUM RESULTS.
--- NOTE | 2018-12-11 04:00 | NUR ---
SHIFT SUMMARY NO CHANGES THIS SHIFT. PT HAS RESTED MOST OF THE NIGHT. MEDICATED X1 FOR PAIN IN HIS LEGS. PT REPORTS THAT HE HAS NOT HAD A BM FOR A FEW DAYS. LACTULOSE GIVEN PER EMAR ORDERS. PT ALSO HAS MIRLAX ORDERED WHICH HE HAS REFUSED FOR THE PAST FEW DAYS. PT ENCOURAGED TO TAKE MIRALAX. HE STATES HE WILL START DOING SO TODAY. PT COMPLIANT WITH FLUID RESTRICTION AND RATIONS HIS ICE. EDEMA TO BLE REMAINS. GOOD URINE OUTPUT. VITALS STABLE. PT A/OX4, PLESANT. WILL CONTINUE TO MONITOR AND REPORT TO ONCOMING RN.
[2018-12-11 05:37] LABS: Hematocrit 30.8 % (37.0-53.0); Hemoglobin 9.3 g/dL (13.5-17.5)
[2018-12-11 05:59] LABS: Albumin, Blood 3.4 g/dL (3.4-5.0); Anion Gap 9 mmol/L (6-16); Blood Urea Nitrogen 64 mg/dL (8-24); Bun/Creatinine Ratio 45.4 (12.0-20.0); CO2, Blood 28 mmol/L (21-32); Calcium, Blood 8.8 mg/dL (8.5-10.1); Chloride, Blood 105 mmol/L (98-108); Creatinine, Blood 1.41 mg/dL (0.60-1.20); Glomerular Filtration Rate 53 (60-); Glucose, Blood 102 mg/dL (70-99); Magnesium, Blood 2.1 mg/dL (1.6-2.4); Phosphorus, Blood 4.2 mg/dL (2.5-4.9); Potassium, Blood 3.3 mmol/L (3.5-5.5); Sodium, Blood 142 mmol/L (136-145)
[2018-12-11 07:17] LABS: ANTIGLOMERULAR BM AB 7 units (0-20)
--- NOTE | 2018-12-11 13:16 | NUR ---
Initial Visit: Spoke to Dr. Guzman. Reviewed plan of care. Pt would be more appropriate as a DNR than FULL code as he is now. Pt has comorbidities: Dr. Guzman reports that he is not a candidate for any surgeries if they are needed. Pt seen for advance directives/POLST form and symptom management. Pt is alert, oriented X3. He appears very fatigued, reports 7/10 pain in headache in addition to many body aches. Reviewed medications. He hasn't had Tylenol since yesterday, 12 hours since his last dose of oxycodone. He requests medication at this time. He also thinks a cold washcloth over his eyes with the lights dimmed in the room may help. Closed blinds. Nurse in room giving medications. Will arrange in bed with cloth after those. Will follow up with patient regarding his wishes for resusitation efforts. This was a good introductory visit. Will follow up with pt when he feels better. He did not sleep well last night. Will be available.
[2018-12-11 14:00] LABS: BASOPHILS ABSOLUTE AUTO 0.07 K/mm3 (0.00-0.23); BASOPHILS PERCENT AUTO 1 % (0-2); EOSINOPHILS ABSOLUTE AUTO 0.34 K/mm3 (0.00-0.68); EOSINOPHILS PERCENT AUTO 6 % (0-6); Hemoglobin 9.5 g/dL (13.5-17.5); IMMATURE GRAN ABSOLUTE AUTO 0.03 K/mm3 (0.00-0.10); IMMATURE GRAN PERCENT AUTO 1 % (0-1); LYMPHOCYTES ABSOLUTE AUTO 2.11 K/mm3 (0.84-5.20); LYMPHOCYTES PERCENT AUTO 38 % (21-46); MONOCYTES ABSOLUTE AUTO 0.53 K/mm3 (0.16-1.47); MONOCYTES PERCENT AUTO 10 % (4-13); Mean Corpuscular HGB 24.4 pg (26.0-34.0); Mean Corpuscular HGB Conc 30.6 g/dL (31.5-36.5); Mean Corpuscular Volume 80 fL (80-100); NEUTROPHILS ABSOLUTE AUTO 2.48 K/mm3 (1.96-9.15); NEUTROPHILS PERCENT AUTO 45 % (41-73); RDW Coefficient Variation 18.6 % (11.7-14.2); RDW Standard Deviation 52.6 fL (35.1-46.3); Red Blood Cell Count 3.89 M/mm3 (4.30-5.90); White Blood Cell Count 5.56 K/mm3 (4.00-11.30)
[2018-12-11 14:06] LABS: Platelet Count 64 K/mm3 (150-400)
[2018-12-11 14:09] LABS: M-SPIKE, % Not Observed % (Not Observed)
--- NOTE | 2018-12-11 15:27 | NUR ---
Pt gave permission to be cared for on 12/11/18 for 12/12/18
--- NOTE | 2018-12-11 15:39 | NUR ---
Pt gave permission for student to provide care on 12-11
--- NOTE | 2018-12-11 18:55 | NUR ---
SHIFT SUMMARY OOB TO CHAIR FOR MEALS; OX3; C/O GENERALIZED PAIN MEDICATED PER MD ORDER. PLEASANT, SPOUSE AT BEDSIDE FOR MOST OF SHIFT. [place]. MARCO A PATIENT. HYPOTENSION NOTED. AMBULATED IN REYES WITH WALKER TODAY. EATING AND DRINKING WELL.
[2018-12-12 05:40] LABS: Hematocrit 31.8 % (37.0-53.0); Hemoglobin 9.3 g/dL (13.5-17.5)
[2018-12-12 06:16] LABS: Albumin, Blood 3.7 g/dL (3.4-5.0); Anion Gap 10 mmol/L (6-16); Blood Urea Nitrogen 60 mg/dL (8-24); Bun/Creatinine Ratio 40.3 (12.0-20.0); CO2, Blood 28 mmol/L (21-32); Chloride, Blood 105 mmol/L (98-108); Creatinine, Blood 1.49 mg/dL (0.60-1.20); Glomerular Filtration Rate 49 (60-); Glucose, Blood 107 mg/dL (70-99); Phosphorus, Blood 3.8 mg/dL (2.5-4.9); Potassium, Blood 3.6 mmol/L (3.5-5.5); Sodium, Blood 143 mmol/L (136-145)
--- NOTE | 2018-12-12 08:29 | NUR ---
SHIFT SUMMARY A/O, ABLE TO MAKE NEEDS KNOWN. COOPERATIVE WITH CARE. ANSWERING QUESTIONS APPROPRIATELY. C/O PAIN/DISCOMFORT; MEDICATED PER EMAR. VSS/AFEBRILE. NO ACUTE CHANGES NOTED. REMAINS ON 2L VIA NC SATING >95% THIS AM. UP WITH SBA AND FWW. APPEARED TO SLEEP MUCH OF SHIFT. BED IN LOWEST POSITION. CALL LIGHT AND BELONGINGS WITHIN REACH. CONTINUED TO MONITOR T/O SHIFT. REPORT GIVEN TO ONCOMING RN.
--- NOTE | 2018-12-12 17:53 | NUR ---
PT AOX4 AND COOPERATIVE OF ALL CARE. PT HAS BEEN 1 PERSON STANDBY AND HAS DONE WELL WITH ALL TRANSFERS. PT HAS THIGH HIGH SERENE HOSE TO HELP WITH HIS 3+ EDEMA. PT PLEASANT WITH ALL CARE. WILL CONTINUE TO MONITOR.
--- NOTE | 2018-12-13 04:44 | NUR ---
SHIFT SUMMARY A/O, ABLE TO MAKE NEEDS KNOWN. COOPERATIVE WITH CARE. CALLS AND ANSWERS QUESTIONS APPROPRIATELY. C/O PAIN/DISCOMFORT THAT IS GENERALIZED AND RATED 7/10. UTILIZES URINAL AT BEDSIDE. >95% ON RA, RESPIRATIONS EVEN WITH EQUAL RISE/FALL. ALL SINGH CTA. VSS/AFEBRILE. NO ACUTE CHANGES OVERNIGHT. APPEARED TO REST MUCH OF SHIFT. BED IN LOWEST POSITION. CALL LIGHT AND BELONGINGS WITHIN REACH. WCTM. REPORT TO ONCOMING RN.
[2018-12-13 05:50] LABS: BASOPHILS ABSOLUTE AUTO 0.04 K/mm3 (0.00-0.23); BASOPHILS PERCENT AUTO 1 % (0-2); EOSINOPHILS ABSOLUTE AUTO 0.35 K/mm3 (0.00-0.68); EOSINOPHILS PERCENT AUTO 6 % (0-6); Hemoglobin 9.3 g/dL (13.5-17.5); IMMATURE GRAN ABSOLUTE AUTO 0.01 K/mm3 (0.00-0.10); IMMATURE GRAN PERCENT AUTO 0 % (0-1); LYMPHOCYTES ABSOLUTE AUTO 2.27 K/mm3 (0.84-5.20); LYMPHOCYTES PERCENT AUTO 41 % (21-46); MONOCYTES ABSOLUTE AUTO 0.43 K/mm3 (0.16-1.47); MONOCYTES PERCENT AUTO 8 % (4-13); Mean Corpuscular HGB 24.1 pg (26.0-34.0); Mean Corpuscular Volume 80 fL (80-100); NEUTROPHILS ABSOLUTE AUTO 2.39 K/mm3 (1.96-9.15); NEUTROPHILS PERCENT AUTO 44 % (41-73); Platelet Count 58 K/mm3 (150-400); RDW Coefficient Variation 19.4 % (11.7-14.2); RDW Standard Deviation 53.3 fL (35.1-46.3); Red Blood Cell Count 3.86 M/mm3 (4.30-5.90); White Blood Cell Count 5.49 K/mm3 (4.00-11.30)
[2018-12-13 05:53] LABS: Albumin, Blood 3.5 g/dL (3.4-5.0); Anion Gap 11 mmol/L (6-16); Blood Urea Nitrogen 59 mg/dL (8-24); Bun/Creatinine Ratio 39.9 (12.0-20.0); CO2, Blood 29 mmol/L (21-32); Calcium, Blood 8.7 mg/dL (8.5-10.1); Chloride, Blood 102 mmol/L (98-108); Creatinine, Blood 1.48 mg/dL (0.60-1.20); Glomerular Filtration Rate 50 (60-); Glucose, Blood 118 mg/dL (70-99); Magnesium, Blood 1.9 mg/dL (1.6-2.4); Phosphorus, Blood 3.5 mg/dL (2.5-4.9); Potassium, Blood 3.4 mmol/L (3.5-5.5); Sodium, Blood 142 mmol/L (136-145)
[2018-12-13] MEDS ORDERED: FURO80 PO (16:01)
[2018-12-13] MEDS ORDERED: Micro-K10 MEQ PO (16:01)
--- NOTE | 2018-12-13 16:54 | NUR ---
PT DISCHARGED WITH TO TRANSPORT. PT AOX4 AND COOPERATIVE OF ALL CARE. INDEPENDENT IN ROOM. PT DROWSY, BUT THIS HAS BEEN HIS BASELINE. PT FINISHED MORING MEDICATIONS. MEDICATIONS FAXED TO [facility] IN [place]. ALL PAPERS REVIEWED AND EDUCATIONAL MATERIAL PROVIDED. APPOINTMENT ALREADY SCHEDULED THIS SUNDAY AT [address] STRICKLAND. PT ESCORTED BY AID OUT TO N ENTRANCE.
[2018-12-16 12:08] LABS: ANA DIRECT Positive (Negative); ANTI-CENTROMERE B ANTIBODIES <0.2 AI (0.0-0.9); ANTI-DNA (DS) AB QN 29 IU/mL (0-9); ANTI-JO-1 <0.2 AI (0.0-0.9); ANTICHROMATIN ANTIBODIES <0.2 AI (0.0-0.9); ANTIMYELOPEROXIDASE (MPO) ABS <9.0 U/mL (0.0-9.0); ANTIPROTEINASE 3 (PR-3) ABS <3.5 U/mL (0.0-3.5); ANTIRIBOSOMAL P ANTIBODIES <0.2 AI (0.0-0.9); ANTISCLERODERMA-70 ANTIBODIES <0.2 AI (0.0-0.9); ATYPICAL PANCA <1:20 titer (Neg:<1:20); CYTOPLASMIC (C-ANCA) <1:20 titer (Neg:<1:20); PERINUCLEAR (P-ANCA) <1:20 titer (Neg:<1:20); RNP ANTIBODIES 5.6 AI (0.0-0.9); SJOGREN'S ANTI-SS-A <0.2 AI (0.0-0.9); SJOGREN'S ANTI-SS-B <0.2 AI (0.0-0.9); SMITH ANTIBODIES <0.2 AI (0.0-0.9); SMITH/RNP ANTIBODIES <0.2 AI (0.0-0.9)
== END 2018-12-13 17:01 | disposition home health service (06) | DRG 291 ==
LOC: ER 15:08 → ERHOLD 15:09 → MEDS 15:09 → ER 15:09 → ERHOLD 15:09 → MEDS 22:22 → ERHOLD 12-07 12:55 → MEDS 12-07 22:15 → ER 12-07 22:15 → MEDS 12-07 22:16
PROVIDERS: Hospitalist; Internal Medicine; Internal Medicine Nephrology; Physician Assistant; ADMIT Hospitalist
DX: I13.0 Hypertensive heart and chronic kidney disease with heart failure and stage 1 through stage 4 chronic kidney disease, or unspecified chronic kidney disease (principal); I50.43 Acute on chronic combined systolic (congestive) and diastolic (congestive) heart failure; N17.9 Acute kidney failure, unspecified; K76.6 Portal hypertension; E87.2 Acidosis; E87.6 Hypokalemia; B18.2 Chronic viral hepatitis C; K74.60 Unspecified cirrhosis of liver; G47.33 Obstructive sleep apnea (adult) (pediatric); M79.7 Fibromyalgia; K21.9 Gastro-esophageal reflux disease without esophagitis; G89.4 Chronic pain syndrome; N18.2 Chronic kidney disease, stage 2 (mild); I25.10 Atherosclerotic heart disease of native coronary artery without angina pectoris; E78.5 Hyperlipidemia, unspecified; E11.22 Type 2 diabetes mellitus with diabetic chronic kidney disease; E29.1 Testicular hypofunction; E88.09 Other disorders of plasma-protein metabolism, not elsewhere classified; I95.9 Hypotension, unspecified; D63.1 Anemia in chronic kidney disease; Z87.891 Personal history of nicotine dependence; Z95.5 Presence of coronary angioplasty implant and graft; Z88.0 Allergy status to penicillin; Z88.8 Allergy status to other drugs, medicaments and biological substances; Z79.84 Long term (current) use of oral hypoglycemic drugs; Z79.899 Other long term (current) drug therapy
CPT/HCPCS: 36415; 36430; 36600; 76705; 76770; 80048; 80053; 80069; 81050; 82550; 82728; 82784; 82803; 83516; 83520; 83540; 83550; 83735; 84100; 84132; 84156; 84165; 84166; 84484; 84550; 85014; 85018; 85025; 85610; 86038; 86256; 86334; 86335; 86850; 86900; 86901; 86923; 93005; 93010; 93306; 94761; 96372-59; 96374; 96376; 97110; 97162; 97165; 97530; 97535; 99285-25; J0881; J1644; J1940; J2916; J7050; P9016; P9041

== ENCOUNTER 2019-11-13 16:16 | Emergency (ER) | payer MEDICARE, OTHER ==
[~2019-11-13] VITALS: Ht 182.9 cm; Wt 84.8 kg
[~2019-11-13 16:16] MED LIST changes: +BUME2 PO; +EPLE25 PO; +Midodrine HCl2.5 MG PO
[2019-11-13 18:10] LABS: BASOPHILS ABSOLUTE AUTO 0.03 K/mm3 (0.00-0.23); BASOPHILS PERCENT AUTO 1 % (0-2); EOSINOPHILS PERCENT AUTO 2 % (0-6); Hematocrit 35.3 % (37.0-53.0); Hemoglobin 11.5 g/dL (13.5-17.5); IMMATURE GRAN ABSOLUTE AUTO 0.01 K/mm3 (0.00-0.10); IMMATURE GRAN PERCENT AUTO 0 % (0-1); LYMPHOCYTES ABSOLUTE AUTO 0.63 K/mm3 (0.84-5.20); LYMPHOCYTES PERCENT AUTO 13 % (21-46); MONOCYTES ABSOLUTE AUTO 0.62 K/mm3 (0.16-1.47); MONOCYTES PERCENT AUTO 13 % (4-13); Mean Corpuscular HGB Conc 32.6 g/dL (31.5-36.5); Mean Corpuscular Volume 92 fL (80-100); NEUTROPHILS ABSOLUTE AUTO 3.54 K/mm3 (1.96-9.15); NEUTROPHILS PERCENT AUTO 72 % (41-73); Platelet Count 61 K/mm3 (150-400); RDW Coefficient Variation 14.6 % (11.7-14.2); RDW Standard Deviation 49.5 fL (35.1-46.3); Red Blood Cell Count 3.83 M/mm3 (4.30-5.90); White Blood Cell Count 4.93 K/mm3 (4.00-11.30)
[2019-11-13 18:38] LABS: Alanine Aminotransfer (ALT/SGP 47 U/L (12-78); Albumin, Blood 2.9 g/dL (3.4-5.0); Albumin/Globulin Ratio 0.6 (0.8-1.8); Alk Phos 86 U/L (50-136); Anion Gap 4 mmol/L (6-16); Bilirubin, Total 1.5 mg/dL (0.1-1.0); Blood Urea Nitrogen 35 mg/dL (8-24); Bun/Creatinine Ratio 39.4 (12.0-20.0); CO2, Blood 25 mmol/L (21-32); Calcium, Blood 8.7 mg/dL (8.5-10.1); Chloride, Blood 107 mmol/L (98-108); Creatinine, Blood 0.89 mg/dL (0.60-1.20); Globulin, Blood 4.7 g/dL (2.2-4.0); Glomerular Filtration Rate >60 (60-); Glucose, Blood 159 mg/dL (70-99); Potassium, Blood 4.1 mmol/L (3.5-5.5); Sodium, Blood 136 mmol/L (136-145); Total Protein, Blood 7.6 g/dL (6.4-8.2)
[2019-11-13 18:59] LABS: Aspartate Aminotrans (AST/SGOT 52 U/L (12-37); Troponin I 0.028 ng/mL (0.000-0.040)
== END 2019-11-13 19:44 | disposition home or self-care (01) ==
LOC: ER 16:16
PROVIDERS: Physician Assistant
DX: J81.1 Chronic pulmonary edema (principal); R51 Headache; E11.9 Type 2 diabetes mellitus without complications; I50.9 Heart failure, unspecified; I25.10 Atherosclerotic heart disease of native coronary artery without angina pectoris; G47.30 Sleep apnea, unspecified; Z86.19 Personal history of other infectious and parasitic diseases; Z87.891 Personal history of nicotine dependence; Z88.0 Allergy status to penicillin; Z88.8 Allergy status to other drugs, medicaments and biological substances; Z79.84 Long term (current) use of oral hypoglycemic drugs; Z79.899 Other long term (current) drug therapy
CPT/HCPCS: 36415; 71046; 80053; 83690; 83880; 84484; 85025; 93005; 93010; 99284-25

== ENCOUNTER → 2020-02-09 | Outpatient (CLI) | payer MEDICARE, OTHER ==
[2020-02-09 11:31] LABS: Albumin, Blood 2.7 g/dL (3.4-5.0); Albumin/Globulin Ratio 0.6 (0.8-1.8); Bilirubin, Total 1.6 mg/dL (0.1-1.0); Bun/Creatinine Ratio 36.2 (12.0-20.0); Calcium, Blood 8.6 mg/dL (8.5-10.1); Creatinine, Blood 1.41 mg/dL (0.60-1.20); Globulin, Blood 4.8 g/dL (2.2-4.0); Potassium, Blood 3.5 mmol/L (3.5-5.5); Total Protein, Blood 7.5 g/dL (6.4-8.2)
[2020-02-09 11:46] LABS: Percent Saturation 14.8 % (20.0-50.0)
== END | disposition home or self-care (01) ==
LOC: LAB SHORT 11:06 → LAB 11:06
PROVIDERS: Internal Medicine Hematology & Oncology
DX: C22.0 Liver cell carcinoma (principal); D63.0 Anemia in neoplastic disease; I10 Essential (primary) hypertension; D51.8 Other vitamin B12 deficiency anemias; R06.09 Other forms of dyspnea
CPT/HCPCS: 80053; 82607; 82728; 82746; 83540; 83550